=== PATIENT | female | born 2000 | race Caucasian/White ===

== ENCOUNTER 2024-02-01 23:10 | Emergency (ER) | payer BC, SELFPAY ==
[2024-02-01 23:16] VITALS: BP 122/78
[2024-02-02] MEDS: TYLENOL 1000 MG PO (01:09)
[2024-02-02 01:26] LABS: % Basophils 0.1 % (0-2); % Immature Granulocytes 0.3 % (0-0.5); % Lymphocytes 14.5 % (20.5-51.1); % Monocytes 8.1 % (1.7-9.3); Absolute Lymphocytes 1.1 10^3/uL (1.2-3.4); Absolute Monocytes 0.6 10^3/uL (0.1-0.6); Absolute Neutrophils 5.9 10^3/uL (1.4-6.5); Hematocrit 36.7 % (37.0-47.0); Hemoglobin 13.1 g/dL (12.0-16.0); Mean Corp Hgb Conc. 35.7 g/dL (33.0-37.0); Mean Corpuscular Hgb 30.5 pg (27.0-31.0); Mean Corpuscular Volume 85.3 fL (81.0-99.0); Mean Platelet Volume 10.4 fL (7.4-10.4); Nucleated Red Blood Cells % 0 %; Platelet Count 180 10^3/uL (130-400); Red Cell Dist. Width 12.6 % (11.5-14.5); White Blood Cell Count 7.7 10^3/uL (4.8-10.8)
[2024-02-02 01:36] LABS: HCG, Serum Qualitative Screen Negative
[2024-02-02 01:38] LABS: COVID-19 Antigen Negative (Negative)
[2024-02-02 01:40] LABS: ALT (SGPT) 18 U/L (0-35); AST (SGOT) 26 U/L (14-36); Albumin 3.7 g/dl (3.5-5.0); Alkaline Phosphatase 74 U/L (38-126); Blood Urea Nitrogen 13 mg/dl (7-17); Calcium 8.5 mg/dl (8.4-10.2); Carbon Dioxide 25 mmol/L (22-30); Chloride 106 mmol/L (98-107); Glucose 104 mg/dl (70-99); Sodium 135 mmol/L (135-145); Total Bilirubin 0.3 mg/dl (0.2-1.3); Total Protein 6.2 g/dl (6.3-8.2); eGFR > 60.00
--- NOTE | 2024-02-02 02:05 | ED.GENMED ---
History of Present Illness
General
Chief Complaint: Fever
Source: patient
Exam Limitations: none
Time Seen by Provider: 02/02/24 01:45
History of Present Illness
History of Present Illness:
This is a 23 year old female that comes in with c/o fever. States that she had a fever of 104, her chest hurt and it was hard for her to breath. States that she has a cough and a headache. States that this started on night after cleaning up
some dust at work. States that she has been taking Ibuprofen since Saturday and she felt better but tonight she couldn't get her temp to come down it kept going up and up. States that she had fever with chills, chest pain, SOB, abd pain, nausea,
headache across her forehead and lightheadedness. States that she also has a sore throat. Denies any vomiting, diarrhea, urinary burning.
Past History
Past History
ED Past Medical History: Asthma and Psychiatric (Anxiety, Depression, Mood disorder); Negative HTN, Hypercholesterolemia or NIDDM
ED Past Surgical History: None
Social History
Tobacco: Non-smoker
Alcohol: Occasional
Personal: Single
Living: with family
Review of Systems
Review of Systems
All Other Systems: ROS reviewed and negative except as documented in HPI and ROS
Constitutional: Reports fever and chills
EENT: Reports no symptoms
Respiratory: Reports cough and trouble breathing
Cardiac: Reports chest pain
ABD/GI: Reports abdominal pain and nausea; Denies vomiting or diarrhea
: Reports no symptoms; Denies dysuria, frequency or urgency
Musculoskeletal: Reports no symptoms
Skin: Reports no symptoms
Neurological: Reports headache and other (Lightheaded); Denies dizzy
Psychiatric: Reports no symptoms
Phy Exam
General Physical Exam
General Presentation: well appearing and no apparent distress
General age: appears stated age
General Skin: other (Clammy)
General Habitus: normal
General Mental: alert
General Hydration: appears well hydrated
ENT Exam
ENT Exam: neck supple and other (Pharynx red, negative for any exudate)
Eye Exam
Eye Exam: EOMI
Cardiovascular Exam
Cardiovascular Exam: no edema, normal peripheral pulses and tachycardia
Pulmonary Exam
Pulmonary Exam: lungs clear, no respiratory distress, no rales, chest non tender, no crackles, no rhonchi, no wheezing and no cough
Gastrointestinal Exam
Gastrointestinal Exam: normal bowel sounds, non tender, soft, no organomegaly, no pulsatile mass and non distended
Musculoskeletal Exam
Musculoskeletal Exam: full ROM and no edema
Skin Exam
Skin Exam: normal color, no rash, no petechia and other (Clammy)
Psychiatric Exam
Psychiatric Exam: normal mood/affect
Course
Orders/Labs/Results
Orders:
Orders
02/02/24 01:00
Test Result ONCE
02/02/24 01:07
Acetaminophen [Tylenol] 1,000 mg .ROUTE .STK-MED ONE
02/02/24 01:08
Acetaminophen [Tylenol] 1,000 mg PO NOW STA
02/02/24 01:15
CMP [Comprehensive Metabolic Panel] Urgent
COVID-19 Antigen Urgent
Source: Nasal Swab
Complete Blood Count/With Diff Urgent
HCG, Serum Qualitative Screen Urgent
Monotest Urgent
Comment: ADDON
Rapid Strep Group A Urgent
JUAN ANTONIO Source: Throat/Pharynx
Specimen Description:
Date Specimen was Collected: 02/02/24
Time Specimen was Collected: 01:00
02/02/24 02:03
Add On- LAB Urgent
Tests Added?: Snyder
0.9% Sodium Chloride 1000 ml [Nss] 1,000 ml IV BOLUS
CR Chest - 2 Views Urgent
Comment:
Reason For Exam: Fever, cough
02/02/24 02:24
Influenza A+B Rapid Molecular Urgent
JUAN ANTONIO Source: Nasal Swab
Specimen Description:
02/02/24 03:01
Urinalysis Reflex To Culture Urgent
Date Specimen was Collected: 02/02/24
Time Specimen was Collected: 02:59
Abnormal Lab Results
02/02/24
01:15
Hct 36.7 L %
(37.0-47.0)
Absolute Lymphs (auto) 1.1 L 10^3/uL
(1.2-3.4)
Neutrophils % 77.0 H %
(42.2-75.2)
Lymphocytes % 14.5 L %
(20.5-51.1)
Glucose 104 H mg/dl
(70-99)
Total Protein 6.2 L g/dl
(6.3-8.2)
02/02/24 01:15
02/02/24 01:15
glucose nonfasting. HCG negative. COVID negative. Rapid strep negative. Urine negative for infection.
Vital Signs
Initial and Last Documented VS:
Initial Vital Signs
Temp Pulse Resp BP Pulse Ox
101.8 F H 134 26 122/78 98
02/01/24 23:16 02/01/24 23:16 02/01/24 23:16 02/01/24 23:16 02/01/24 23:16
Last Documented Vital Signs
Temp Pulse Resp BP Pulse Ox
100.7 F H 89 16 108/70 98
02/02/24 01:09 02/02/24 03:00 02/02/24 03:00 02/02/24 03:00 02/02/24 03:00
MDM/Problems Addressed
Differential Diagnosis Includes:
Snyder. Viral syndrome.
MDM/Problems Addressed:
This is a 23 year old female that comes in with multiple complaints. States that she has been sick since and she was taking Ibuprofen and felt better. Tonight she felt that her fever kept going up and she couldn't get it down.
Will check labs. COVID, Rapid strep, Flu, Chest x-ray .
Back into see patient and parents. Explained that her blood work was normal. She is negative for COVID, Influenza, Snyder and her rapit strep. chest x-ray is negative. Urine is pending. If all negative this is most likely something viral. Patient to
alternate with Tylenol and ibuprofen for pain, increase her water intake and follow up with the family doctor for recheck. Patient to return with any concerns
Chronic conditions affecting care:
NA
Acute Exacerbation and/or Progression of Chronic Illness:
NA
*Radiology
Radiology exam reviewed: preliminary read by ED provider (Chest- negative for active disease. )
*Pulse Oximetry
Patient hypoxic: no
*EKG
Interpreted by ED Provider?: NA
Rate: EKG- N/A
*Weigh Tank Operator Interpretation
Rate: Weigh Tank Operator- N/A
*Critical Care Note
Total Time (30-74mins, 75-104mins- exclusive of procedures): Not Applicable
ED Attending Note
-
Portions of this chart may have been created with voice recognition software.� Occasional wrong word or��sound alike� substitutions may have occurred due to the inherent limitations of voice recognition software.
Discharge Plan
Departure
Patient Disposition: Home (Routine Discharge)
Date of Disposition: 02/02/24
Time of Disposition: 03:30
Patient with high blood pressure during this ER visit?: No
Condition: Good
Covid-19: Negative COVID-19
Discharge Problem:
Fever, Viral illness
Instructions: Fever, Adult (DC), Viral Syndrome (DC)
Referrals:
Elzbieta Mae PA-C [Family Provider] - Follow up in 2-3 days
Activity Restrictions/Additional Instructions:
As discussed, your blood work is normal. You are negative for COVID, Influenza, Snyder, and strep. Your chest x-ray is negative for infection. Please increase your water intake to to 8-8oz glasses daily. You may take Ibuprofen 600mg every 6 hours with
food for fever and alternate this with Tylenol 1000mg every 6 hours. Follow up with the family doctor for recheck. IF YOU HAVE ANY OTHER CONCERNS PLEASE RETURN TO THE EMERGENCY ROOM.
Interventions
Interventions:
*Risk Screen - Suicide Last Done: 02/01/24 23:16
*General Assessment Last Done: 02/02/24 03:00
*Neglect/Abuse Screening Last Done: 02/01/24 23:16
ED- Neurological Assessment Last Done: 02/02/24 03:00
ED-Skin Assessment Last Done: 02/02/24 03:00
Discharge Date and Time
Print Language: [id number]
[2024-02-02] MEDS: NSS 1000 IV (02:21)
[2024-02-02 02:40] LABS: Monotest Negative (Negative)
[2024-02-02 03:00] VITALS: BP 108/70
[2024-02-02 03:29] LABS: Urine Albumin Negative (Neg - Trace); Urine Bilirubin Negative (Negative); Urine Character Clear (Clear); Urine Color Yellow; Urine Glucose Negative (Negative); Urine Ketone Negative (Negative); Urine Leukocyte Negative (Negative); Urine Nitrite Negative (Negative); Urine Occult Blood Negative (Negative); Urine Specific Gravity 1.015 (<1.030); Urine Urobilinogen Negative (Neg - 1+)
== END 2024-02-02 03:41 | disposition home or self-care (01) ==
LOC: EMR 23:10
PROVIDERS: Clinical Nurse Specialist Family Health; Student in an Organized Health Care Education/Training Program; EMERGENCY PHYSICIAN Emergency Medicine; FAMILY PHYSICIAN Physician Assistant
DX: B34.9 Viral infection, unspecified (principal); R50.9 Fever, unspecified; R51.9 Headache, unspecified; R06.02 Shortness of breath; R10.9 Unspecified abdominal pain; R11.0 Nausea; R07.9 Chest pain, unspecified; Z11.52 Encounter for screening for COVID-19; J45.909 Unspecified asthma, uncomplicated; F41.9 Anxiety disorder, unspecified; F32.A Depression, unspecified; Z91.048 Other nonmedicinal substance allergy status
CPT/HCPCS: 99284; 96360; 71046; 80053; 81003; 84703; 85025; 86308; 87070; 87502; 87811; 87880